=== PATIENT | female | born 2005 | race Two or more races ===

== ENCOUNTER 2025-05-26 01:45 | Emergency (ER) | payer OTHER ==
[2025-05-26] MEDS: Ketorolac 30 MG/ML SDV IVPUSH ONE (02:04)
[2025-05-26] MEDS: Sodium Chloride 0.9% 10 ML Syringe FLUSH PRN (02:06)
[2025-05-26 02:11] LABS: BLOOD UREA NITROGEN,BUN 8 mg/dL (7-18); CARBON DIOXIDE,CO2 25 mmol/L (21-32); CHLORIDE,CL 104 mmol/L (100-110); CREATININE 0.8 mg/dL (0.55-1.02); ESTIMATED GFR 109 mL/min (>60); GLUCOSE RANDOM 86 mg/dL (80-116); POTASSIUM,K 3.6 mmol/L (3.5-5.3); SODIUM,NA 141 mmol/L (135-145)
[2025-05-26 02:12] LABS: BASOPHILS ABSOLUTE AUTO 0.0 x10-3/uL (0.0-0.1); BASOPHILS PERCENT AUTO 0.6 % (0.2-1.5); EOSINOPHILS ABSOLUTE AUTO 0.1 x10-3/uL (0.0-0.8); EOSINOPHILS PERCENT AUTO 1.2 % (0.6-8.1); LYMPHOCYTES ABSOLUTE AUTO 2.9 x10-3/uL (1.0-4.4); LYMPHOCYTES PERCENT AUTO 40.0 % (18.4-52.1); MEAN PLATELET VOLUME 8.6 fL (7.1-12.4); MONOCYTES ABSOLUTE AUTO 0.6 x10-3/uL (0.3-1.0); MONOCYTES PERCENT AUTO 8.2 % (4.4-15.7); NEUTROPHILS ABSOLUTE AUTO 3.7 x10-3/uL (1.5-6.3); NEUTROPHILS PERCENT AUTO 50.0 % (30.8-76.2); PLATELET COUNT,PLT 282 x10(3)uL (151-488); RED CELL DISTRIBUTION WIDTH 18.8 % (12.3-16.5); WHITE BLOOD CELL COUNT,WBC 7.4 x10-3/uL (3.0-10.3)
[2025-05-26 02:17] LABS: A/G RATIO 1.3; ALANINE AMINOTRANSFERASE,ALT 13 U/L (12-36); ASPARTATE AMNIOTRANSFERASE,AST 16 IU/L (5-25); BILIRUBIN TOTAL 0.8 mg/dL (0.1-1.2); PROTEIN TOTAL,TP 7.4 g/dL (6.0-8.0)
[2025-05-26 02:29] LABS: ETHANOL BLOOD MEDICAL < 0.03 % (<0.03)
[2025-05-26 02:30] LABS: LACTIC ACID 3.6 mmol/L (0.4-2.0)
[2025-05-26 02:31] LABS: RED BLOOD CELL COUNT 4.61 x10(6)uL (3.60-5.20)
[2025-05-26 03:08] LABS: GLUCOSE,URINE NORMAL (NORMAL); OCCULT BLOOD,URINE NEGATIVE (NEGATIVE)
[2025-05-26 03:18] LABS: AMPHETAMINES SCREEN, URINE NEGATIVE (NEGATIVE); METHADONE SCREEN, URINE NEGATIVE (NEGATIVE); METHAMPHETAMINE SCREEN, URINE NEGATIVE (NEGATIVE); OXYCODONE SCREEN,URINE NEGATIVE (NEGATIVE)
[2025-05-26 03:19] LABS: APPEARANCE,URINE CLEAR (CLEAR); BUPRENORPHINE SCREEN,URINE NEGATIVE (NEGATIVE)
== END 2025-05-26 04:02 | disposition home or self-care (01) ==
LOC: FB.ED 01:45
DX: N83.202 Unspecified ovarian cyst, left side (principal); E86.0 Dehydration; F17.290 Nicotine dependence, other tobacco product, uncomplicated; E87.20 Acidosis, unspecified
CPT/HCPCS: 36415; 74176; 80053; 80307; 81003; 83605; 83690; 84702; 85025; 86140; 96361; 96374; 99285; J1885; J7030; 99284